=== PATIENT | female | born 1975 | race Caucasian/White ===

== ENCOUNTER → 2018-03-16 | Outpatient (REF) | payer OTHER ==
[2018-03-16 17:24] LABS: AMYLASE 33 U/L (25-115)
[2018-03-16 17:24] LABS: LIPASE 111 U/L (73-393)
[2018-03-17 08:36] LABS: CONTROL LINE HPYORI INT CTR LINE PRESENT; H PYLORI QUALITATIVE IgG NEGATIVE (NEGATIVE)
== END ==
LOC: M LAB REF 17:01
DX: R11.0 Nausea (principal)
CPT/HCPCS: 82150

== ENCOUNTER → 2018-11-06 | Outpatient (REF) | payer OTHER ==
[~2018-11-06] MED LIST: IBUP-1022 PO; VICO5TAB16 PO
[2018-11-06 17:30] LABS: FOLLICLE STIMULATING HORMONE 8.9 mIU/mL; LUTEINIZING HORMONE 5.1 mIU/mL
== END ==
LOC: M LAB REF 16:27
PROVIDERS: ATTEND Nurse Practitioner Adult Health
DX: R23.2 Flushing (principal); G47.9 Sleep disorder, unspecified

== ENCOUNTER → 2021-09-02 | Outpatient (CLI) | payer OTHER ==
[~2021-09-02] MED LIST changes: -VICO5TAB16 PO; +VICO5TAB17 PO
== END ==
LOC: M RAD 13:40
PROVIDERS: ATTEND Nurse Practitioner Adult Health
DX: M25.551 Pain in right hip (principal)

== ENCOUNTER → 2022-08-31 | Outpatient (CLI) | payer OTHER | LOC: M WUC 10:00 | PROVIDERS: ATTEND Nurse Practitioner Adult Health | DX: R05.9 Cough, unspecified (principal) ==

== ENCOUNTER → 2024-10-18 | Outpatient (CLI) | payer OTHER | LOC: M PLAIMG 11:02 | PROVIDERS: ATTEND Nurse Practitioner Adult Health | DX: J01.90 Acute sinusitis, unspecified (principal) ==

== ENCOUNTER → 2025-03-04 | Outpatient (REF) | payer OTHER | LOC: M LAB REF 18:07 | PROVIDERS: ATTEND Nurse Practitioner Adult Health | DX: R10.13 Epigastric pain (principal) ==